=== PATIENT | male | born 2000 | race Caucasian/White ===

== ENCOUNTER 2023-01-10 23:53 | Emergency (ER) | payer SELFPAY ==
[~2023-01-10] VITALS: Ht 185.4 cm; Wt 77.3 kg
[2023-01-11 00:02] VITALS: BP 122/75; PULSE 72; RESP 17; TEMP 97.8; O2SAT 99
== END 2023-01-11 00:29 ==
LOC: ER 23:53
DX: V41.5XXA Car driver injured in collision with pedal cycle in traffic accident, initial encounter; Y93.89 Activity, other specified; Y92.89 Other specified places as the place of occurrence of the external cause; Y99.8 Other external cause status
CPT/HCPCS: 99283